=== PATIENT | female | born 2005 | race Two or more races ===

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

== ENCOUNTER 2024-08-31 04:05 | Inpatient (IN) | payer BC, OTHER ==
[~2024-08-31] VITALS: Ht 182.9 cm; Wt 90.7 kg
[2024-08-31] MEDS ORDERED: LACTATED RINGER'S 1,000 ML IV SCH (04:45)
[2024-08-31] MEDS ORDERED: NALBUPHINE HCL 10 MG/1ml INJECTION IV PRN (04:45)
[2024-08-31] MEDS ORDERED: LACT. RINGERS/OXYTOCIN 20UNITS 500 ML IV ONE ×2 (04:45→05:15)
[2024-08-31] MEDS ORDERED: LIDOCAINE 2%HCL (LOCAL ANESTH.) INJ 20ML MDV IJ PRN (04:45)
[2024-08-31] MEDS ORDERED: PENICILLIN G POT 5MIL/D5 50ML 50 ML IV ONE (04:45)
[2024-08-31 05:20] LABS: Urine Bacteria FEW /hpf (None Seen); Urine Blood Negative /uL (Negative); Urine Clarity Clear (Clear); Urine Color Light-Yellow (Yellow); Urine Mucus FEW (None Seen); Urine Protein, UAD Negative (Negative); Urine Specific Gravity 1.014 (1.001-1.035); Urine Squamous Epithelial Cell FEW /hpf (<5); Urine Urobilinogen Normal (Negative); Urine WBC 4 /HPF (0-5); Urine pH 6.5 (5.0-9.0)
[2024-08-31 05:27] LABS: Basophils # (auto) 0 10 ^3/uL (0-0.2); Basophils % (auto) 0.2 % (0.0-2.0); Eosinophils # (auto) 0 10 ^3/uL (0-0.8); Eosinophils % (auto) 0.1 % (0.0-7.0); Hematocrit 33.3 % (36.0-46.0); Hemoglobin 11.2 g/dL (12.2-16.2); Lymphocytes # (auto) 1.6 10 ^3/uL (0.4-5.4); Lymphocytes % (auto) 16.6 % (10.0-50.0); Mean Corpuscular Hemoglobin 27.5 pg (28.0-32.0); Mean Corpuscular Hgb Conc. 33.5 g/dL (32.0-36.0); Mean Corpuscular Volume 81.9 fL (80.0-100.0); Monocytes # (auto) 0.7 10 ^3/uL (0-1.3); Monocytes % (auto) 7.1 % (0.0-12.0); Neutrophils # (auto) 7.2 10 ^3/uL (1.6-8.6); Nucleated Red Blood Cells % 0.1 %; Platelet Count (auto) 166 10^3/uL (140-450); Red Blood Cells 4.06 10^6/uL (4.0-5.20); Red Cell Distribution Width 14.5 % (11.8-14.3); White Blood Cell 9.5 10^3/uL (4.4-10.8)
[2024-08-31 05:34] LABS: INR 0.91 (0.9-1.15); Partial Thromboplastin Time 25.2 SEC (24.5-34.5); Prothrombin Time 9.7 sec (9.3-11.8)
[2024-08-31 05:39] LABS: Anion Gap 13 (5-15); Aspartate Aminotransferase 15 U/L (<34); BUN/Creatinine Ratio 10.4 (10.0-20.0); Bilirubin, Total 0.7 mg/dL (0.2-1.0); Calcium 9.5 mg/dL (8.7-10.4); Carbon Dioxide 22 mmol/L (20-31); Chloride 105 mmol/L (98-107); Glucose 90 mg/dL (74-106); Sodium 140 mmol/L (136-145); Total Protein 6.7 g/dL (5.7-8.2)
--- NOTE | 2024-08-31 05:40 | DVH ---
LIMITED OB ULTRASOUND > 14 WKS: HISTORY: PAIN TECHNIQUE: Multiple real-time grayscale images of the gravid uterus with duplex Doppler color flow an d M-mode spectral analysis. TRANSDUCER: Transabdominal COMPARISON: None FINDINGS: IUP single live fetus at 40 weeks and 4 days based on composite averages of the BPD, head circumferen ce, abdominal circumference and femur length Estimated weight 4047 grams heart rate 144 beats per minute NEGRITA 7.7 cm Cervix is not visualized Cephalic Presentation Anterior Placenta without previa or abruption. IMPRESSION: IUP single live fetus at 40 weeks and 4 days AUA corresponding to an JOAN of 08/27/2024
[2024-08-31 05:41] LABS: Alanine Aminotransferase < 9 U/L (7-40); Alkaline Phosphatase 276 U/L (46-116); Blood Urea Nitrogen 7 mg/dL (9-23); Potassium 3.3 mmol/L (3.5-5.1)
[2024-08-31 05:41] LABS: Amphetamine Screen, Urine Neg (NEGATIVE); Barbiturate Scree,Urine Neg (NEGATIVE); Benzodiazephine Screen, Urine Neg (NEGATIVE); Cannabinoid Screen, Urine Neg (NEGATIVE); Cocaine Screen, Urine Neg (NEGATIVE); Opiate Scree,Urine Neg (NEGATIVE); Phencyclidine Screen, Urine Neg (NEGATIVE)
--- NOTE | 2024-08-31 05:58 | DVHHP2 ---
OB CC & HPI Date Date of Admission: Aug 31, 2024 Patient Identification: : 2 Para: 1 EGA: baby precip delivery appears full term ; unknown Chief Complaints: Reason for admission: active labor Admission Nurse Assessment Rev: Yes History of Present Complaints No Care Past Medical History Cardiac: No pertinent Hx Pulmonary: No pertinent Hx Central Nervous System: No pertinent Hx GI: No pertinent Hx Hemotology/Oncology: No pertinent Hx Hepatobiliary: No pertinent Hx Psychiatric: No pertinent Hx Musculoskeletal: No pertinent Hx Rheumotologic: No pertinent Hx Infectious Disease: No peritnent Hx ENT: No pertinent Hx Renal/: No pertinent Hx Endocrine: No pertinent Hx Dermatology: No pertinent Hx OB History OB History Care: None Ultrasounds: No ultrasounds Obstetrical Complications: None Medical Complications: None Allergies: Coded Allergies: Codeine (Verified Allergy, Intermediate, 12/14/21) Peanut-containing Drug Products (Verified Allergy, Unknown, 08/31/24) Home Meds No Active Prescriptions or Reported Meds Current Medications Current Medications Medications (Trade) Dose Ordered Sig/Mala Route PRN Reason Start Time Stop Time Status Last Admin Lactated Ringer's 1,000 ml @ 125 mls/hr Q8H IV 08/31/24 04:45 Nalbuphine HCl (Nubain) 10 mg Q4HP PRN IV MODERATE PAIN (4-6 PAIN SCALE) 08/31/24 04:45 Penicillin G Potassium [id number] units/Dextrose 50 ml @ 100 mls/hr Q4H IV 08/31/24 08:45 Witch Najma (Tucks) 1 pad PRN PRN TOP PERINEAL AREA DISCOMFORT 08/31/24 04:45 Sodium Lauryl Sulfate (Phisoderm) 240 ml PRN PRN TOP PERINEAL AREA DISCOMFORT 08/31/24 04:45 Benzocaine (Dermoplast) 1 applic PRN PRN TOP PERINEAL AREA DISCOMFORT 08/31/24 04:45 Lidocaine HCl (Xylocaine) 40 ml ONCE PRN IJ PERINEAL AREA DISCOMFORT 08/31/24 04:45 Family & Social History Family/Social History Rubella: unknown RPR/VDRL: Unknown GBS Status: Unknown HBsAG: Unknown Review of Systems Constitutional: No symptom reported Ears, Nose, & Throat: No symptom reported Eyes: No symptom reported Pulmonary/Respiratory: No symptom reported Cardiovascular: No symptom reported Gastrointestinal: No symptom reported Genitourinary: No symptom reported Musculoskeletal: No symptom reported Skin: No symptom reported Psychiatric: No symptom reported Endocrine: No symptom reported Hemotologic/Lymphatic: No symptom reported OB Admission Exam Physical Exam HEENT: TMs Normal, Fontanelles Normal, Nasal Mucosa Normal, Eyes non-injected, Oropharynx Normal, PERRLA, Moist Membranes, EOMI Heart: Rhythm Normal Lungs: Clear Abdomen: Non tender Extremities: Normal Reflexes: Normal OB Plan Plan Admitting Diagnosis: Onset of Labor, No pre care Plan: Expectant Management Other Plan: Drug screening .... Full screening KRISTIN KOEHLER DO Aug 31, 2024 05:58
--- NOTE | 2024-08-31 05:59 | LDN2 ---
Labor and Delivery Note Date 08/31/24 Age 18 Para 2 EDC ? EGA ? Diagnosis active labor appears term no PNC Precip delivery Vaginal Delivery: VTX Vacuum Assisted: No Placenta: Spontaneous Sex: Male Weight pnd Apgars 8/9 Episiotomy: No Extension: No EBL 300cc Labs Laboratory Tests 08/31/24 04:50: Blood Bank 12/14/21 07:46: Blood Type A POSITIVE Complications none Conditions good Visit Coding OBGYN Date of Service: Aug 31, 2024 Billing Provider: KRISTIN KOEHLER DO GLASS FURNACE OPERATOR Common Visit Codes: [id number] INP/OBS CARE(HIGH) GLASS FURNACE OPERATOR Procedure Codes: 29064-WIO DEL INCLUDING KRISTIN KOEHLER DO Aug 31, 2024 05:59
[2024-08-31 07:00] VITALS: BP 135/76; PULSE 98; RESP 18; TEMP 99.9
[2024-08-31] MEDS ORDERED: PENICILLIN G POTASSIUM 2,500,000 UNITS in D5W 5% 50 ML IV SCH (08:45)
[2024-08-31 11:00] VITALS: BP 121/64; PULSE 95; RESP 16; TEMP 98.3; O2SAT 96
[2024-08-31 15:00] VITALS: BP 119/70; PULSE 93; RESP 16; TEMP 97.9; O2SAT 97
[2024-08-31] MEDS: DERMOPLAST 60ML BOTTLE TOP PRN (17:31)
[2024-08-31] MEDS: PHISODERM TOP SOLN 240ML BTL TOP PRN (17:31)
[2024-08-31] MEDS: WITCH HAZEL-GLYCERIN PAD TOP PRN (17:31)
[2024-08-31 19:00] VITALS: BP 114/65; PULSE 96; RESP 18; TEMP 98.1; O2SAT 98
[2024-08-31 23:00] VITALS: BP 112/57; PULSE 81; RESP 17; TEMP 98.3; O2SAT 98
[2024-08-31] MEDS ORDERED: ACETAMINOPHEN 325 MG TAB PO PRN (23:30)
[2024-08-31] MEDS ORDERED: IBUPROFEN 600 MG TAB PO PRN (23:30)
--- NOTE | 2024-09-01 00:25 | DVHPN2 ---
Progress Note Date Seen: Sep 01, 2024 Subjective S: bleeding is less, eating food without issues, denies lightheaded/dizziness, pain well controlled with oral medications, no concerns with urinating, passing flatus, no BM yet, ambulating well, well vital signs Vital Sign Date Time Temp Pulse Resp B/P (MAP) Pulse Ox O2 Delivery O2 Flow Rate FiO2 08/31/24 19:00 98.1 96 18 114/65 (81) 98 98.1 08/31/24 18:30 Room Air Total Intake and Output 08/31/24 08/31/24 09/01/24 15:00 23:00 07:00 Output Total 900 ml 650 ml Balance -900 ml -650 ml medications Current Medications Medications Dose Ordered Sig/Mala Route Start Time Stop Time Status Last Admin Dose Admin López Najma 1 pad PRN PRN TOP 08/31/24 04:45 08/31/24 17:31 1 PAD Sodium Lauryl Sulfate 240 ml PRN PRN TOP 08/31/24 04:45 08/31/24 17:31 240 ML Benzocaine 1 applic PRN PRN TOP 08/31/24 04:45 08/31/24 17:31 1 APPLIC Ibuprofen 600 mg Q6HP PRN PO 08/31/24 23:30 Acetaminophen 650 mg Q6HPRN PRN PO 08/31/24 23:30 Docusate Sodium 200 mg DAILY PRN PO 09/01/24 07:00 laboratory and microbiology Laboratory Tests 08/31/24 04:50 Test 08/31/24 04:50 Range/Units Serum Glucose 90 74-106 mg/dL Objective O: VSS Chest: heart sounds normal and lung sounds clear bilaterally Abd: soft, non-tender, fundus at U/firm/midline, active bowel sounds, no rebound or guarding Perineum: intact, no erythema/edema noted Ext: Non-tender, No edema Lochia: minimal See lab results Problems(with codes): (1) Precipitous delivery (2) (normal spontaneous vaginal delivery) Assessment/Plan A: 18yo now PPD#1 s/p Rh+ Rubella pending Breast and formula feeding Pain control with PO medications Bowel regimen P: Continue with routine PP care Plan discussed with: Patient Visit Coding OBGYN Date of Service: Sep 01, 2024 Billing Provider: ADALGISA TADEO CNM HEALTH AND PHYSICAL EDUCATION TEACHER Common Visit Codes: [id number] INP/OBS CARE(MOD) RAY HERNANDEZ STUDENTMDW Sep 01, 2024 00:25
[2024-09-01 02:55] VITALS: BP 122/69; PULSE 70; RESP 16; TEMP 98.1; O2SAT 98
[2024-09-01] MEDS ORDERED: TETANUS-DIPTH-ACEL PERTUSSIS 0.5ML SYR Tdap IM ONE (07:00)
[2024-09-01] MEDS ORDERED: DOCUSATE SOD 100 MG CAP PO PRN (07:00)
[2024-09-01 07:13] LABS: Basophils # (auto) 0 10 ^3/uL (0-0.2); Basophils % (auto) 0.3 % (0.0-2.0); Eosinophils # (auto) 0.1 10 ^3/uL (0-0.8); Eosinophils % (auto) 1.1 % (0.0-7.0); Lymphocytes # (auto) 2.8 10 ^3/uL (0.4-5.4); Lymphocytes % (auto) 29.4 % (10.0-50.0); Mean Corpuscular Hemoglobin 27.4 pg (28.0-32.0); Mean Corpuscular Hgb Conc. 33.3 g/dL (32.0-36.0); Mean Corpuscular Volume 82.4 fL (80.0-100.0); Monocytes # (auto) 0.7 10 ^3/uL (0-1.3); Neutrophils # (auto) 5.7 10 ^3/uL (1.6-8.6); Neutrophils % (auto) 61.2 % (37.0-80.0); Platelet Count (auto) 151 10^3/uL (140-450); Red Blood Cells 3.65 10^6/uL (4.0-5.20); Red Cell Distribution Width 14.9 % (11.8-14.3); White Blood Cell 9.4 10^3/uL (4.4-10.8)
[2024-09-01 11:15] VITALS: BP 111/57; PULSE 85; RESP 18; TEMP 98.1; O2SAT 98
[2024-09-01 18:30] VITALS: BP 112/67; PULSE 89; RESP 16; TEMP 98.1; O2SAT 97
[2024-09-01] MEDS ORDERED: DOCU-265 PO (21:22)
[2024-09-01] MEDS ORDERED: IBU600T PO (21:22)
[2024-09-01] MEDS ORDERED: PREN-96 PO (21:22)
[2024-09-01] MEDS ORDERED: FER325T PO (21:30)
[2024-09-01 22:07] LABS: Chlamydia Trachomatis, NAA Negative (Negative); Neisseria gonorrhoeae, NAA Negative (Negative)
[2024-09-01 23:00] VITALS: BP 120/71; PULSE 69; RESP 15; TEMP 98.2; O2SAT 97
--- NOTE | 2024-09-02 00:13 | DVHPN2 ---
Progress Note Date Seen: Sep 02, 2024 Subjective S: bleeding is less, eating food without issues, denies lightheaded/dizziness, pain well controlled with oral medications, no concerns with urinating or BM, passing flatus, ambulating well, well vital signs Vital Sign Date Time Temp Pulse Resp B/P (MAP) Pulse Ox O2 Delivery O2 Flow Rate FiO2 09/01/24 19:00 Room Air 09/01/24 18:30 98.1 89 16 112/67 (82) 97 98.1 medications Current Medications Medications Dose Ordered Sig/Mala Route Start Time Stop Time Status Last Admin Dose Admin López Najma 1 pad PRN PRN TOP 08/31/24 04:45 08/31/24 17:31 1 PAD Sodium Lauryl Sulfate 240 ml PRN PRN TOP 08/31/24 04:45 08/31/24 17:31 240 ML Benzocaine 1 applic PRN PRN TOP 08/31/24 04:45 08/31/24 17:31 1 APPLIC Ibuprofen 600 mg Q6HP PRN PO 08/31/24 23:30 Acetaminophen 650 mg Q6HPRN PRN PO 08/31/24 23:30 Docusate Sodium 200 mg DAILY PRN PO 09/01/24 07:00 laboratory and microbiology Laboratory Tests 09/01/24 06:50 08/31/24 04:50 Test 08/31/24 04:50 Range/Units Serum Glucose 90 74-106 mg/dL Objective VSS Chest: heart sounds normal and lung sounds clear bilaterally Abd: soft, non-tender, fundus at 2 below U/firm/midline, active bowel sounds, no rebound or guarding Perineum: intact, no erythema/edema noted Ext: Non-tender, No edema Lochia: minimal See lab results Problems(with codes): (1) Precipitous delivery (2) (normal spontaneous vaginal delivery) (3) Precipitous drop in hematocrit Assessment/Plan A: 18yo now PPD#2 s/p Rh+ Rubella immune Breast and formula feeding Pain control with PO medications Bowel regimen P: D/C home Rx sent to pharmacy precautions and preeclampsia warning signs reviewed F/U with [facility] office in 2 weeks Plan discussed with: Patient Visit Coding OBGYN Date of Service: Sep 02, 2024 Billing Provider: ADALGISA TADEO CNM REMOTE SENSING SURVEYOR Common Visit Codes: [id number] INP/OBS CARE(MOD) RAY HERNANDEZ STUDENTMDW Sep 02, 2024 00:13
--- NOTE | 2024-09-02 00:21 | DVHDS2 ---
Obstetrics Discharge Summary Obstetrics Discharge Summary Date of Admission: Aug 31, 2024 Date of Discharge: Sep 02, 2024 Reason For Admission: Onset of Labor Procedures: NST, Ultrasound Intrapartum Procedures: Spontaneous vaginal deliv Procedures: Hct/date: (09/01/24), Hgb/date: (09/01/24) Operative Complicat: None Discharge Diagnosis: Term -Delivered Discharge Information: Activity (as tolerated, no heavy lifting and nothing in the vagina for 6 weeks), Diet (Routine), Medications (RX sent), Instructions (Routine), Discharge to (Home), Accompanied by (partner), Discarge date (09/02/24) Visit Coding OBGYN Date of Service: Sep 02, 2024 Billing Provider: ADALGISA TADEO CNM CORPORATE RECYCLING MANAGER Common Visit Codes: 29816-NJF/[id number] DISCH DAY <30MIN RAY HERNANDEZ STUDENTMDW Sep 02, 2024 00:21
[2024-09-02 03:00] VITALS: BP 123/66; PULSE 89; RESP 16; TEMP 97.9; O2SAT 98
[2024-09-02 07:30] VITALS: BP 120/72; PULSE 87; RESP 18; TEMP 98; O2SAT 98
== END 2024-09-02 11:50 | disposition home or self-care (01) | DRG 807 ==
LOC: LDRP 04:05 → OBSVTOIN 04:24 → LDRP 04:31
PROVIDERS: ADMIT Obstetrics & Gynecology; ATTEND Obstetrics & Gynecology
PROC: 10E0XZZ Delivery of Products of Conception, External Approach (ICD-10-PCS; principal; 2024-08-31)
DX: O62.3 Precipitate labor (principal); Z37.0 Single live birth; Z3A.40 40 weeks gestation of pregnancy; Z91.010 Allergy to peanuts; Z88.5 Allergy status to narcotic agent
CPT/HCPCS: 36415; 59025; 59409; 76805; 80053; 80307; 81001; 81002; 85025; 85610; 85730; 86703; 86762; 86780; 86803; 86850; 86900; 86901; 87340; 94760; 96360; 96365; 96366; G0378; J2540; J2590; J7060